=== PATIENT | female | born 1990 | race Caucasian/White ===

== ENCOUNTER 2022-09-05 08:37 | Emergency (ER) | payer OTHER ==
[2022-09-05] MEDS ORDERED: Acetaminophen 500 MG TAB ONE (10:19)
[2022-09-05] MEDS ORDERED: diphenhydrAMINE 25 MG CAP ONE (10:19)
[2022-09-05] MEDS ORDERED: Ibuprofen 800 MG TAB ONE (10:19)
[2022-09-05] MEDS ORDERED: Metoclopramide HCl 10 MG TAB ONE (10:20)
== END 2022-09-05 11:06 ==
LOC: ERS 08:37
DX: Z53.29 Procedure and treatment not carried out because of patient's decision for other reasons (principal)
CPT/HCPCS: 99283